=== PATIENT | male | born 1995 | race Caucasian/White ===

== ENCOUNTER 2017-02-08 17:50 | Emergency (ER) | payer BC, OTHER ==
--- NOTE | 2017-02-08 17:56 | EDPHY ---
H & P Time Seen by Provider: 02/08/17 17:56 Constitutional: Initial Vital Signs Temperature (C) 37.3 C 02/08/17 18:00 Heart Rate 91 02/08/17 18:00 Respiratory Rate 17 02/08/17 18:00 Blood Pressure 160/81 H 02/08/17 18:00 O2 Sat (%) 95 02/08/17 18:00 O2 Delivery Mode [Procedural Non-Rebreather Mask 4th] O2 Delivery Mode [Procedural Non-Rebreather Mask 3rd] O2 Delivery Mode [Procedural Non-Rebreather Mask 2nd] O2 Delivery Mode [Procedural Non-Rebreather Mask 1st] O2 Delivery Mode [.Immediate Non-Rebreather Mask Pre-Procedure] O2 Delivery Mode Room Air O2 (L/minute) [Procedural 4th] 15 O2 (L/minute) [Procedural 3rd] 15 O2 (L/minute) [Procedural 2nd] 15 O2 (L/minute) [Procedural 1st] 15 O2 (L/minute) [.Immediate Pre- 15 Procedure] O2 (L/minute) 15 Allergies/Adverse Reactions: sulfamethoxazole [From Bactrim] Allergy (Verified 02/08/17 18:00) trimethoprim [From Bactrim] Allergy (Verified 02/08/17 18:00) Home Medications: Medication Instructions Recorded HYDROcodone/APAP 325 [[place] 1 - 2 each PO Q4-6PRN PRN #20 tab 02/08/17 10/325] Medical Decision Making - Diagnostics Imaging: I viewed and interpreted images myself ED Course/Re-evaluation: CHIEF COMPLAINT: Left elbow pain HISTORY OF PRESENT ILLNESS: 21-year-old male who was skateboarding when he fell on a left outstretched hand and dislocated his left elbow. Has a few other mild abrasions. He has no other complaints would not be here if it was for the left elbow injury. He has dislocated his right elbow in the same fashion in the past. He has required conscious sedation to get it in place and he is requesting that again. He denies any loss of consciousness neck pain or any other significant injuries. REVIEW OF SYSTEMS: A 10 point review of systems was performed and is negative with the exception of the elements mentioned in the history of present illness. PHYSICAL EXAM: HR, BP, O2 Sat, RR. Temp noted General Appearance: Alert, well hydrated, appropriate, and non-toxic appearing. Head: Atraumatic without scalp tenderness or obvious injury Eyes: Pupils equal, round, reactive to light and accommodation, EOMI, no trauma , no injection. Ears: Clear bilaterally, no perforation, normal landmarks Nose: Atraumatic, no rhinorrhea, clear. Throat: There is no erythema or exudates, no lesions, normal tonsils, mucus membranes moist. Neck: Supple, 2+ carotid upstroke, nontender, no lymphadenopathy. Respiratory: No retractions, no distress, no wheezes, and no accessory muscle use. Lungs are clear to auscultation bilaterally. Cardiovascular: Regular rate and rhythm, no murmurs, rubs, or gallops. Bilateral carotid, radial, dorsalis pedis, and posterior tibial pulses intact. Good capillary refill all extremities. Gastrointestinal: Abdomen is soft, nontender, non-distended, no masses, no rebound, no guarding, no peritoneal signs. Musculoskeletal: Left elbow is obviously dislocated. He is neurovascularly intact distal to the injury. There is no evidence of compartment syndrome, tenting of the skin, or significant fracture clinically. Normal active ROM of all extremities, atraumatic. Neurological: Alert, appropriate, and interactive. The patient has normal DTRs and non-focal cranial nerves, motor, sensory, and cerebellar exam. Skin: No rashes, good turgor, no nodules on palpation. Past medical history: Prior elbow dislocation, otherwise unremarkable Past surgical history: Noncontributory Family history: Noncontributory Social history: Single, does not abuse tobacco drugs or alcohol, employed DIAGNOSTICS/PROCEDURES/CRITICAL CARE TIME: Procedure: Conscious sedation. Indication: Elbow dislocation The patient is an appropriate candidate to tolerate procedural sedation. The patient's vitals signs and mental status are appropriate. The risks, benefits and alternatives of the sedation were discussed with the patient. The patient is ASA classification 1. The patient's Mallampati airway score was 1 and the patient did meet the 3-3-2 airway measurements. A time out was completed. The patient was sedated with 130mg IV Propofol. The patient was monitored with continuous pulse oximetry, court recording monitor and end tidal CO2. There were no complications and no significant hypoxemia. I performed both the sedation and the procedure. The total time I spent at the bedside during the procedural sedation was 25 minutes. The patient was examined after the procedural sedation and has returned to their pre-sedation baseline with normal vital signs and a normal examination. Procedure: Reduction of Dislocation of Elbow Time-out completed immediately before the procedure. IV established. O2 administered. Placed on pulse oximeter and ETCO2 monitor. Neurovascular exam intact pre-procedure. Given 130mg IV Propofol for pain and sedation. The left elbow dislocation was reduced using traction. Reassessed post-procedure. Neurovascular status intact-normal Motor and sensory exam. Exam indicated reduction. Splint applied by tech. After x-ray, the elbow appeared dislocated again. The procedure was performed by myself, Dr. Bella Procedure: Conscious sedation. Indication: Elbow dislocation The patient is an appropriate candidate to tolerate procedural sedation. The patient's vitals signs and mental status are appropriate. The risks, benefits and alternatives of the sedation were discussed with the patient. The patient is ASA classification 1. The patient's Mallampati airway score was 1 and the patient did meet the 3-3-2 airway measurements. A time out was completed. The patient was sedated with 70mg IV Propofol. The patient was monitored with continuous pulse oximetry, court recording monitor and end tidal CO2. There were no complications and no significant hypoxemia. I performed both the sedation and the procedure. The total time I spent at the bedside during the procedural sedation was 25 minutes. The patient was examined after the procedural sedation and has returned to their pre-sedation baseline with normal vital signs and a normal examination. Procedure: Reduction of Dislocation of Elbow Time-out completed immediately before the procedure. IV established. O2 administered. Placed on pulse oximeter and ETCO2 monitor. Neurovascular exam intact pre-procedure. Given 130mg IV Propofol for pain and sedation. The left elbow dislocation was reduced using traction. Reassessed post-procedure. Neurovascular status intact-normal Motor and sensory exam. Exam indicated reduction. Splint applied by myself and the tech. After x-ray, the elbow appeared properly located. The procedure was performed by myselfDr. Bella. Post-reduction x-ray confirms radial head fracture. DIFFERENTIAL DIAGNOSIS: The differential diagnosis for the patient's trauma included but was not limited to elbow dislocation, intracranial injury, long bone and pelvic bone fractures, spinal injury, intra-abdominal injury, and intra -thoracic injury. MEDICAL DECISION MAKING: This patient has a few abrasions but is here because of his dislocated left elbow. He is requesting conscious sedation since he has dislocated his right elbow before they were not able to get it in place without sedation. Has a few very minor bruises and abrasions but did not lose consciousness has no head pain no neck pain did not even hit his head. He is not complaining of anything else. Elbow reduced successfully during conscious sedation. CMS remains intact. Patient will be discharged with standard elbow dislocation care and follow up instructions. He is comfortable with this plan. Departure - Departure Disposition: Home, Routine, Self-Care Clinical Impression: Dislocation of left elbow Qualifiers: Encounter type: initial encounter Qualified Code(s): S53.105A - Unspecified dislocation of left ulnohumeral joint, initial encounter Radial head fracture, closed Qualifiers: Encounter type: initial encounter Fracture alignment: nondisplaced Laterality: left Qualified Code(s): S52.125A - Nondisplaced fracture of head of left radius , initial encounter for closed fracture Condition: Good Instructions: Elbow Dislocation (ED) Additional Instructions: 1. Take 600mg ibuprofen every 6-8 hours as needed for pain and inflammation for the next few days. 2. Use [place] as prescribed as needed for severe pain. 3. Follow up with orthopedist within in next week without fail. 4. Return to the ED for severe pain, weakness, numbness or other worsening of condition. Referrals: Patient,NotPresent [Unknown] - As per Instructions Ford Scanlon MD [Medical Doctor] - As per Instructions Prescriptions: HYDROcodone/APAP 10/325 [[place] 10/325] 1 - 2 each PO Q4-6PRN PRN #20 tab PRN Reason: Pain, Moderate Report Scribed for: Mathieu Bella Report Scribed by: Conchita Cooney Date of Report: 02/08/17 Time of Report: 18:43
[2017-02-08] MEDS ORDERED: PROPOFOL 200 MG/20 ML VIAL ONE ×2 (18:02→18:37)
[2017-02-08] MEDS ORDERED: HYDROCODONE/APAP 5/325 TAB PO ONE (19:05)
[2017-02-08] MEDS ORDERED: HYDROCOD/APAP 5/325 PREPACK#6 BTL TAKEHOME ONE (19:05)
[2017-02-08 19:45] VITALS: BP 149/69; PULSE 77; RESP 16; TEMP 97.9; O2SAT 93
== END 2017-02-08 19:42 | disposition home or self-care (01) ==
LOC: EDUNIT#
PROC: 0RSMXZZ Reposition Left Elbow Joint, External Approach (ICD-10-PCS; principal; 2017-02-08)
DX: S53.105A Unspecified dislocation of left ulnohumeral joint, initial encounter (principal); S52.125A Nondisplaced fracture of head of left radius, initial encounter for closed fracture; V00.131A Fall from skateboard, initial encounter; Y99.8 Other external cause status; Y93.51 Activity, roller skating (inline) and skateboarding
CPT/HCPCS: J2704

== ENCOUNTER 2017-12-08 16:43 | Emergency (ER) | payer BC, MEDICAID, OTHER ==
--- NOTE | 2017-12-08 17:12 | EDPHY ---
H & P Time Seen by Provider: 12/08/17 17:01 HPI/ROS: CHIEF COMPLAINT: Fall, right elbow pain HISTORY OF PRESENT ILLNESS: Patient presents with complaints of fall and right elbow pain. He was at work this afternoon, and works as a parts delivery driver. He says he tripped on a step while delivering something. He landed on his right arm in outward stretched fashion. He felt a sudden onset of pain and a pop in the right elbow. He felt as though he may have dislocated and reduced it prior to arrival. He now has moderate pain in the right elbow rest. Severe if he moves it. No numbness, tingling or weakness. No radiating pain. No pain in the right shoulder wrist. No head injury or head strike. No other associated complaints or modifying factors. Right-hand dominant ESTABLISHED ORTHOPEDIST: None REVIEW OF SYSTEMS: Ten systems reviewed and are negative unless otherwise noted in the HPI PAST MEDICAL HISTORY: Orthopedic injuries PAST SURGICAL HISTORY: Left elbow surgery SOCIAL HISTORY: Denies tobacco use. Occasional alcohol marijuana use. Lives here independently. Works for [employer] HISTORY: Noncontributory EXAMINATION General Appearance: Alert, no distress HEENT: Normocephalic and atraumatic. Pupils equal round reactive. EOM symmetric. No nystagmus or dysconjugate gaze Cardiovascular: Radial pulses are 2+ symmetrically. There is brisk cap refill in all 5 fingers of the right hand. Neurological: A&O, radial, ulnar and median distributions are intact in the right upper extremity 2 point sensation intact in the fingers of the right hand. interossei strength symmetric Skin: Warm and dry, no rash. No petechiae. No purpura. No puncture laceration Extremities: There is tenderness over the right elbow primarily over the radial head. There is no tenderness of the olecranon process. No tenderness of the right wrist or snuffbox. Range of motion of the right upper extremity is symmetric but there is pain with extension of the right elbow. No crepitus or deformity per Psychiatric: Mood and affect normal DIFFERENTIAL DIAGNOSES: Including but not limited to radial head fracture, sprain, strain, subluxation, dislocation MDM: 5:10 p.m. Reported mechanical fall with right elbow pain after fall on outstretched hand. No bony tenderness of the shoulder, wrist or hand on the right upper extremity. He does have tenderness on the right elbow particular with extension of the elbow. Although there is no obvious bony abnormality on the plain film as read by me, I will place him in a posterior splint and sling to protect for occult radial head injury. He is neurovascular intact distally. This injury did occur at work, thus he knows he must contact his worker's sales compensation analyst. We discussed ice and elevation. We discussed ED precautions. We discuss anti-inflammatories and short course of pain medication. Discharged home stable condition. SUPERVISION: This patient was independently evaluated without direct involvement of or examination by the attending physician. ED Precautions: Worsening pain. Erythema, edema, cyanosis, pallor, paresthesia or anesthesia. Smoking Status: Current some day smoker Constitutional: Initial Vital Signs Temperature (C) 98.6 F 12/08/17 16:46 Heart Rate 68 12/08/17 16:46 Respiratory Rate 16 12/08/17 16:46 Blood Pressure 147/87 H 12/08/17 16:46 O2 Sat (%) 96 12/08/17 16:46 O2 Delivery Mode Room Air Allergies/Adverse Reactions: sulfamethoxazole [From Bactrim] Allergy (Verified 02/08/17 18:00) trimethoprim [From Bactrim] Allergy (Verified 02/08/17 18:00) Home Medications: Medication Instructions Recorded traMADol [Ultram 50 mg (*)] 50 mg PO Q4 PRN #7 tab 12/08/17 MDM/Departure - MDM Imaging Results: Imaging Impressions Elbow X-Ray 12/08/17 16:48 Impression: Negative for fracture or dislocation. - Depart Disposition: Home, Routine, Self-Care Clinical Impression: Pain in right elbow Fall Qualifiers: Encounter type: initial encounter Qualified Code(s): W19.XXXA - Unspecified fall, initial encounter Sprain of elbow, right Qualifiers: Encounter type: initial encounter Qualified Code(s): S53.401A - Unspecified sprain of right elbow, initial encounter Condition: Good Instructions: Elbow Sprain (ED) Additional Instructions: 1. Splint and sling as provided until seen by [facility] compensation [facility] orthopedist for definitive care 2. Ice and elevate often 3. Ibuprofen 400-600 mg every 6-8 hours as needed for pain 4. Tramadol as prescribed as needed for pain 5. Contact her worker's compensation Clinic for further care and orthopedic follow-up if needed 6. ED precautions as discussed Stand Alone Forms: Work Comp Follow Up Prescriptions: traMADol [Ultram 50 mg (*)] 50 mg PO Q4 PRN #7 tab PRN Reason: Pain, Mild Referrals: Vladimir Medina MD [Medical Doctor] - As per Instructions
[2017-12-08 17:37] VITALS: BP 139/81
== END 2017-12-08 17:40 | disposition home or self-care (01) ==
DX: S53.401A Unspecified sprain of right elbow, initial encounter (principal); F17.200 Nicotine dependence, unspecified, uncomplicated; W18.39XA Other fall on same level, initial encounter; Y92.69 Other specified industrial and construction area as the place of occurrence of the external cause; Y99.0 Civilian activity done for income or pay; Y93.89 Activity, other specified
CPT/HCPCS: A4565

== ENCOUNTER 2017-12-09 13:51 | Emergency (ER) | payer MEDICAID, OTHER ==
[2017-12-09 14:21] VITALS: BP 163/86
--- NOTE | 2017-12-09 15:01 | EDPHY ---
H & P Stated Complaint: R elbow pain Time Seen by Provider: 12/09/17 14:49 HPI/ROS: CHIEF COMPLAINT: Right elbow pain HISTORY OF PRESENT ILLNESS: 22-year-old male seen the ER yesterday after he injured his right elbow while he was at work. Describes tripping and falling onto his right elbow. He was seen the ER, had negative radiographs, placed in a posterior Ortho Glass splint, given prescription for tramadol. He returns to the ER noting that he has had intractable pain. He notes prior history of chronic right elbow pain secondary to multiple injuries. He denies paresthesia , sensory or motor deficit, discoloration, proximal distal pain or injury. PHYSICAL EXAM (Prior to examination, patient consented to physical exam, hands were washed and my usual and customary physical exam procedures followed) 1) GENERAL: Well-developed, well-nourished, alert and oriented. Appears to be in no acute distress. 2) HEAD: Normocephalic 3) HEENT: sclera anicteric 4) LUNGS: Breathing comfortably. 5) SKIN: Intact no discoloration 6) MUSCULOSKELETAL: Right upper extremity posterior Ortho Glass splint in place , taken down by myself. Patient feels significant relief upon taking office splint. Underlying tissue appears well. He has soft compartments. He is tender to palpation of the radial head. 7) NEUROLOGIC: Radial ulnar median nerve function intact distally. Brisk pulses distally. - Personal History Current Tetanus/Diphtheria Vaccine: Yes Current Tetanus Diphtheria and Acellular Pertussis (TDAP): Yes - Medical/Surgical History Hx Asthma: No Hx Chronic Respiratory Disease: No Hx Diabetes: No Hx Cardiac Disease: No Hx Renal Disease: No Hx Cirrhosis: No Hx Alcoholism: No Hx HIV/AIDS: No Hx Splenectomy or Spleen Trauma: No Other PMH: L elbow surgery - Social History Smoking Status: Current some day smoker Constitutional: Initial Vital Signs Temperature (C) 36.6 C 12/09/17 14:10 Heart Rate 70 12/09/17 14:10 Respiratory Rate 16 12/09/17 14:10 Blood Pressure 163/86 H 12/09/17 14:10 O2 Sat (%) 97 12/09/17 14:10 O2 Delivery Mode Room Air Allergies/Adverse Reactions: sulfamethoxazole [From Bactrim] Allergy (Verified 12/09/17 14:10) trimethoprim [From Bactrim] Allergy (Verified 12/09/17 14:10) Home Medications: Medication Instructions Recorded traMADol [Ultram 50 mg (*)] 50 mg PO Q4 PRN #7 tab 12/08/17 Hydrocodone/APAP 5/325 [[place] 1 tab PO Q6 PRN #15 tab 12/09/17 5/325 (RX)] Medical Decision Making ED Course/Re-evaluation: I reviewed the patient's medical records. He feels significant relief after taking off the Ortho Glass splint. This will be removed and he is just placed in a sling at this time. Radial head occult fracture not ruled out. No evidence of compartment syndrome at this time. He is neurovascularly intact with soft compartments. Plan will be discharged with close follow-up with orthopedics and change of analgesia. He feels comfortable being discharged. Usual and customary orthopedic precautions and instructions provided. I saw this patient independently based on established practice protocols. Care of patient under supervision of secondary supervising physician Dr Alberto Stokes Departure - Departure Disposition: Home, Routine, Self-Care Clinical Impression: Right elbow pain Condition: Good Instructions: Elbow Sprain (ED) Additional Instructions: Return to the ER immediately if you experience discoloration, have worsening pain, numbness, tingling, or any other symptoms that concern you. If you received x-rays in the emergency department today, be advised, that ligamentous , tendon, muscular, and other non-bony injury cannot be fully ruled out. Try to keep your affected extremity elevated above the level of your chest, and keep cold packs on the affected area, for the next 48 hours. Referrals: Iker Benavidez MD [Medical Doctor] - 2-3 days, call for appt. Stand Alone Forms: Work Comp Follow Up Prescriptions: Hydrocodone/APAP 5/325 [[place] 5/325 (RX)] 1 tab PO Q6 PRN #15 tab PRN Reason: Pain, Severe
== END 2017-12-09 15:11 | disposition home or self-care (01) ==
DX: S59.901A Unspecified injury of right elbow, initial encounter (principal); F17.200 Nicotine dependence, unspecified, uncomplicated; W01.0XXA Fall on same level from slipping, tripping and stumbling without subsequent striking against object, initial encounter; Y92.69 Other specified industrial and construction area as the place of occurrence of the external cause; Y99.0 Civilian activity done for income or pay; Y93.89 Activity, other specified

== ENCOUNTER 2018-02-09 15:16 | Emergency (ER) | payer MEDICAID, OTHER ==
[2018-02-09] MEDS ORDERED: NS 500 ML IV ONE (16:24)
[2018-02-09] MEDS ORDERED: LIDOCAINE 2% VISCOUS 15 ML UDCUP PO ONE (16:24)
[2018-02-09] MEDS ORDERED: MAG HYDROX/AL HYDROX/SIMETH 30 ML UDCUP PO ONE (16:24)
[2018-02-09] MEDS ORDERED: HYOSCYAMINE SULFATE 0.125 MG TAB PO ONE (16:24)
[2018-02-09] MEDS ORDERED: ASPIRIN 81 MG CHEWABLE TAB PO ONE (16:24)
[2018-02-09] MEDS ORDERED: LORazepam 2 MG/ML INJ IVP ONE (16:25)
--- NOTE | 2018-02-09 16:28 | EDPHY ---
H & P Time Seen by Provider: 02/09/18 16:18 HPI/ROS: CHIEF COMPLAINT: "Possible alcohol withdrawal", epigastric pain/chest pain HISTORY OF PRESENT ILLNESS: Patient is a 22-year-old male who reports drinking alcohol regularly and heavily. His last drink was last evening. He feels as though he may be having alcohol withdrawal. Feeling anxious and jittery. Patient also complains of epigastric and chest pain. This is mild. There is no radiation of his pain. No shortness of breath. No fevers or chills. REVIEW OF SYSTEMS: My complete review of systems is negative except as mentioned in the HPI. Past Medical/Surgical History: Includes alcohol abuse Past surgical history: Left elbow surgery Social history: The patient drinks alcohol regularly. Smoking Status: Former smoker Physical Exam: 36.7, 157/78, 116, 18, 100% on room air GENERAL: Well-appearing, in no acute distress, alert. HEENT: Eyes normal to inspection, normal pharynx, no signs of dehydration. NECK: No thyromegaly, no lymphadenopathy, supple. RESPIRATORY: Clear to auscultation bilaterally, no rales, rhonchi or wheezing. CVS: Tachycardia with regular rhythm, no rubs, murmurs, or gallops. ABDOMEN: Soft, nontender, nondistended, no organomegaly. Benign BACK: Normal to inspection, no CVA tenderness. SKIN: Normal color, no rash, warm, dry. No pallor. EXTREMITIES: No pedal edema, no calf tenderness, no Homans sign or cords, no joint swelling. NEURO/PSYCH: Slight tremor. Alert and oriented x3, normal mood and affect, normal motor sensory exam. No obvious cranial nerve deficit. Constitutional: Initial Vital Signs Temperature (C) 36.7 C 02/09/18 15:24 Heart Rate 116 H 02/09/18 15:24 Respiratory Rate 18 02/09/18 15:24 Blood Pressure 157/78 H 02/09/18 15:24 O2 Sat (%) 100 02/09/18 15:24 O2 Delivery Mode Room Air Allergies/Adverse Reactions: sulfamethoxazole [From Bactrim] Allergy (Verified 02/09/18 15:23) trimethoprim [From Bactrim] Allergy (Verified 02/09/18 15:23) Home Medications: Medication Instructions Recorded NK [No Known Home Meds] 02/09/18 Medical Decision Making - Diagnostics Imaging Results: Imaging Impressions Chest X-Ray 02/09/18 16:24 Impression: 1. Clear lungs. 2. Right thyroid nodule versus neck mass shifting trachea to the left. Findings discussed with Emergency Department physician, Shanthi Francois M.D. , on February 09, 2018 at 1721. ED Course/Re-evaluation: In the emergency department I discussed possible etiologies with the patient. I answered all his questions. IV was placed. Patient given normal saline 1000 mL IV for hydration. He was given aspirin for his reported chest pain. Patient was given a GI cocktail for his epigastric discomfort history of drinking. Patient was given Ativan 1 mg IV for alcohol withdrawal symptoms. Laboratory studies, and EKG were ordered. EKG shows normal sinus rhythm, normal rate, normal axis, normal intervals. There are no ST or T-wave abnormalities. EKG is normal as interpreted by me. CBC chemistry normal. Troponin is negative. Chest x-ray: Please refer the dictated report. On recheck the patient was feeling better. His abdomen was soft, nontender nondistended. Clear breath sounds bilaterally. The patient was given warnings prior to leaving. I recommended he go to the arc. He did not want to go at this time. He will return with worsening symptoms. I discussed the case with the radiologist. He recommended an outpatient ultrasound of the patient's neck. He did not feel this needs to be in emergency department. Patient had already left the emergency department. I attempted to call the patient at his phone number provided. The mailbox was full. Differential Diagnosis: My differential includes but is not limited to alcohol withdrawal, anxiety, esophagitis, gastritis, GERD, Karly-Hernandez tear, esophageal perforation, ACS, acute [place], pulmonary embolus - Data Points Laboratory Results: Laboratory Results 02/09/18 16:45 02/09/18 16:45 02/09/18 02/09/18 02/09/18 16:48 16:45 16:45 WBC 8.63 10^3/uL 10^3/uL (3.80-9.50) RBC 5.48 10^6/uL 10^6/uL (4.40-6.38) Hgb 16.6 g/dL g/dL (13.7-17.5) Hct 46.8 % % (40.0-51.0) MCV 85.4 fL fL (81.5-99.8) MCH 30.3 pg pg (27.9-34.1) MCHC 35.5 g/dL g/dL (32.4-36.7) RDW 13.2 % % (11.5-15.2) Plt Count 245 10^3/uL 10^3/uL (150-400) MPV 10.3 fL fL (8.7-11.7) Neut % (Auto) 62.8 % % (39.3-74.2) Lymph % (Auto) 26.8 % % (15.0-45.0) [place] % (Auto) 9.0 % % (4.5-13.0) Eos % (Auto) 0.2 % L % (0.6-7.6) Baso % (Auto) 0.5 % % (0.3-1.7) Nucleat RBC Rel Count 0.0 % % (0.0-0.2) Absolute Neuts (auto) 5.42 10^3/uL 10^3/uL (1.70-6.50) Absolute Lymphs (auto) 2.31 10^3/uL 10^3/uL (1.00-3.00) Absolute Monos (auto) 0.78 10^3/uL 10^3/uL (0.30-0.80) Absolute Eos (auto) 0.02 10^3/uL L 10^3/uL (0.03-0.40) Absolute Basos (auto) 0.04 10^3/uL 10^3/uL (0.02-0.10) Absolute Nucleated RBC 0.00 10^3/uL 10^3/uL (0-0.01) Immature Gran % 0.7 % % (0.0-1.1) Immature Gran # 0.06 10^3/uL 10^3/uL (0.00-0.10) Sodium 139 mEq/L mEq/L (135-145) Potassium 4.2 mEq/L mEq/L (3.3-5.0) Chloride 101 mEq/L mEq/L (97-110) Carbon Dioxide 27 mEq/l mEq/l (22-31) Anion Gap 11 mEq/L mEq/L (8-16) BUN 13 mg/dL mg/dL (7-23) Creatinine 0.9 mg/dL mg/dL (0.7-1.3) Estimated GFR > 60 Glucose 100 mg/dL mg/dL (70-100) Calcium 10.4 mg/dL mg/dL (8.5-10.4) Total Bilirubin 0.4 mg/dL mg/dL (0.1-1.4) Conjugated Bilirubin 0.2 mg/dL mg/dL (0.0-0.5) Unconjugated Bilirubin 0.2 mg/dL mg/dL (0.0-1.1) AST 43 IU/L IU/L (17-59) ALT 50 IU/L IU/L (21-72) Alkaline Phosphatase 86 IU/L IU/L (38-126) POC Troponin I 0.00 ng/mL ng/mL (0.00-0.08) Total Protein 8.3 g/dL H g/dL (6.3-8.2) Albumin 4.8 g/dL g/dL (3.5-5.0) Lipase 39 IU/L IU/L (23-300) Medications Given: Discontinued Medications Al Hydroxide/Mg Hydroxide (Maalox Susp) 30 ml PO ONCE ONE Stop: 02/09/18 16:25 Last Admin: 02/09/18 16:55 Dose: 30 ml Aspirin (Aspirin) 324 mg PO EDNOW ONE Stop: 02/09/18 16:25 Last Admin: 02/09/18 16:53 Dose: 324 mg Hyoscyamine Sulfate (Levsin, Hyomax-Sl) 0.25 mg PO ONCE ONE Stop: 02/09/18 16:25 Last Admin: 02/09/18 16:53 Dose: 0.25 mg Sodium Chloride (Ns) 500 mls @ 1,000 mls/hr IV EDNOW ONE PRN Reason: Protocol Stop: 02/09/18 16:53 Last Admin: 02/09/18 16:56 Dose: 500 mls Lidocaine (Lidocaine 2% Viscous) 15 ml PO ONCE ONE Stop: 02/09/18 16:25 Last Admin: 02/09/18 16:55 Dose: 15 ml Lorazepam (Ativan Injection) 1 mg IVP EDNOW ONE Stop: 02/09/18 16:26 Last Admin: 02/09/18 16:51 Dose: 1 mg Point of Care Test Results: Chemistry 02/09/18 16:48 POC Troponin I 0.00 ng/mL ng/mL (0.00-0.08) Departure - Departure Disposition: Home, Routine, Self-Care Clinical Impression: Anxiety Alcohol withdrawal Qualifiers: Complication of substance-induced condition: uncomplicated Qualified Code(s): F10.230 - Alcohol dependence with withdrawal, uncomplicated Chest pain Qualifiers: Chest pain type: unspecified Qualified Code(s): R07.9 - Chest pain, unspecified Condition: Good Instructions: Chest Pain (ED), Alcohol Withdrawal (ED) Additional Instructions: Return with increasing abdominal pain, shortness of breath, fever, repeated vomiting or any other concerns. Referrals: Tiana Lagos, [Doctor of Osteopathy] - 3-4 days, if not improved
[2018-02-09 17:05] LABS: PLATELET COUNT 245 10^3/uL (150-400)
--- NOTE | 2018-02-09 17:07 | CPEKG ---
Heart Rate: 66 RR Interval: 909 P-R Interval: 120 QRSD Interval: 94 QT Interval: 408 QTC Interval: 428 P [place]: 19 QRS [place]: 65 T Wave [place]: 31 EKG Severity - NORMAL ECG - EKG Impression: SINUS RHYTHM Electronically Signed By: Jeet Parks 09-Feb-2018 21:36:00
[2018-02-09 18:18] VITALS: BP 149/89
== END 2018-02-09 18:28 | disposition home or self-care (01) ==
DX: F10.230 Alcohol dependence with withdrawal, uncomplicated (principal); F41.9 Anxiety disorder, unspecified; R07.9 Chest pain, unspecified; E86.9 Volume depletion, unspecified; Z87.891 Personal history of nicotine dependence
CPT/HCPCS: 84484-PO; 96374; J2060

== ENCOUNTER 2018-12-01 00:14 | Observation (INO) | payer MEDICAID, OTHER ==
[2018-12-01] MEDS ORDERED: IOPAMIDOL (ISOVUE-300) 100 ML BTL ONE (01:33)
[2018-12-01 03:00] LABS: PLATELET COUNT 260 10^3/uL (150-400)
--- NOTE | 2018-12-01 03:01 | EDPHY ---
H & P Stated Complaint: L NECK SWELLING - Personal History Current Tetanus Diphtheria and Acellular Pertussis (TDAP): Unsure - Medical/Surgical History Hx Asthma: No Hx Chronic Respiratory Disease: No Hx Diabetes: No Hx Cardiac Disease: No Hx Renal Disease: No Hx Cirrhosis: No Hx Alcoholism: Yes Hx HIV/AIDS: No Hx Splenectomy or Spleen Trauma: No Other PMH: L elbow surgery, KNEE SX - Social History Smoking Status: Former smoker Time Seen by Provider: 12/01/18 00:25 HPI/ROS: Chief complaint: Left-sided neck swelling History of present illness: This is a 23-year-old male who presents to the emergency department for left-sided neck swelling. Reports he has noted the swelling over the last 3-4 days. The swelling has progressively worsened. He reports it is uncomfortable. He denies any specific precipitating factors. He denies any alleviating factors. He denies other associated signs or symptoms including no fevers, no cold symptoms including sore throat or cough, no difficulty talking, swallowing, opening closing his mouth or breathing. He has never had similar. Review of systems: A 10 point review of systems was obtained and other than described above was negative. ([place]) - Physical Exam Exam: General Appearance: Alert, no distress. Eyes: Pupils equal and round no pallor or injection. ENT, Mouth: Mucous membranes moist. Tympanic membranes, external auditory canals, external ears and surrounding soft tissue including over the mastoids are unremarkable. Nasopharynx is not injected. There is no rhinorrhea. Oropharynx is not injected. There is no edema. There is no exudate. There is no asymmetry. The uvula is midline. No elevation of the tongue. There is no hoarseness, no drooling, no trismus, no stridor. Respiratory: There are no retractions, lungs are clear to auscultation. Cardiovascular: Regular rate and rhythm. Neurological: Alert and oriented x4. Strength and sensation intact and symmetrical. Skin: Warm and dry, no rashes. Musculoskeletal: Patient has swelling along the left side of his neck. There area is mildly tender. He has decreased range of motion. Extremities are symmetrical, full range of motion. Psychiatric: Patient is oriented X 3, there is no agitation. (Ben Hi) Constitutional: Initial Vital Signs Temperature (C) 36.8 C 12/01/18 00:17 Heart Rate 90 12/01/18 00:17 Respiratory Rate 16 12/01/18 00:17 Blood Pressure 119/66 12/01/18 00:17 O2 Sat (%) 95 12/01/18 00:17 O2 Delivery Mode Room Air Allergies/Adverse Reactions: sulfamethoxazole [From Bactrim] Allergy (Verified 02/09/18 15:23) trimethoprim [From Bactrim] Allergy (Verified 02/09/18 15:23) Home Medications: Medication Instructions Recorded NK [No Known Home Meds] 02/09/18 Medical Decision Making - Diagnostics Imaging: Discussed imaging studies w/ call box wirer Radiologist ED Course/Re-evaluation: Patient is seen under the supervision of my secondary supervising physician Dr. Valentin Peralta. Patient presents for left-sided neck pain. CT scan of the reveals 2 large thyroid masses concerning for malignancy. Baseline blood studies are obtained. Patient will be admitted to Dr. Rodriguez for further care. ENT is consulted, Dr. Jeremiah Nieves who will see the patient in the morning.. The plan has been discussed with the patient who voiced understanding and agreement with it. (Ben Hi) Differential Diagnosis: Included but not limited to cell a very gland infection, abscess (Ben Hi) - Data Points Laboratory Results: Laboratory Results 12/01/18 00:38 12/01/18 00:38 Medications Given: Discontinued Medications Sodium Chloride (Ns) 1,000 mls @ 0 mls/hr IV EDNOW ONE; Wide Open PRN Reason: Protocol Stop: 12/01/18 03:20 Last Admin: 12/01/18 03:22 Dose: 1,000 mls Point of Care Test Results: Chemistry 12/01/18 00:43 POC Sodium 141 mEq/L mEq/L (135-145) POC Potassium 3.7 mEq/L mEq/L (3.3-5.0) POC Chloride 103 mEq/L mEq/L (97-110) POC Total CO2 21 mEq/L L mEq/L (22-31) POC BUN 11 mg/dL mg/dL (7-23) POC Creatinine 0.7 mg/dL mg/dL (0.7-1.3) POC Glucose 102 mg/dL H mg/dL (70-100) ISTAT H&H 12/01/18 00:43 POC Hgb 16.7 gm/dL gm/dL (13.7-17.5) POC Hct 49 % % (40-51) Departure - Departure Disposition: [facility] Inpatient Acute Clinical Impression: Tumor, thyroid Condition: Fair
[2018-12-01] MEDS ORDERED: ACETAMINOPHEN 325 MG TAB PO PRN (03:09)
[2018-12-01] MEDS ORDERED: ONDANSETRON 4 MG/2 ML VIAL IVP PRN (03:09)
[2018-12-01] MEDS ORDERED: ONDANSETRON DISINTEGRATING 4 MG TAB PO PRN (03:09)
[2018-12-01] MEDS ORDERED: NS 1,000 ML IV ONE (03:19)
--- NOTE | 2018-12-01 03:52 | PDGENHP ---
History and Physical - Chief Complaint Neck swelling - History of Present Illness 23 yo M presents with neck swelling. The patient tells me he noted swelling in his neck around 3 days ago. Over the last 2 days this has worsened to where he now has some mild discomfort swallowing. He denies any difficulty breathing. On exam he has visible swollen anterior neck. A CT scan demonstrates 2 large thyroid tumors concerning for malignancy. Of note, the patient tells me his brother recently underwent surgery for thyroid malignancy. Also, he tells me his mom and grandmother also had thyroid issues. He denies any prior medical problems and takes no medications regularly. Case discussed with ED physician Dr. Gudino; records reviewed and summarized above. History Information - Allergies/Home Medication List Allergies/Adverse Reactions: sulfamethoxazole [From Bactrim] Allergy (Verified 02/09/18 15:23) trimethoprim [From Bactrim] Allergy (Verified 02/09/18 15:23) Home Medications: NK [No Known Home Meds] 02/09/18 [Last Taken Unknown] I have personally reviewed and updated: family history, medical history - Past Medical History no pertinent PMH - Surgical History Additional surgical history: Knee and elbow surgery - Family History Positive for: cancer (Brother had thyroid cancer) - Social History Smoking Status: Former smoker Review of Systems Review of Systems: ROS: 10pt was reviewed & negative except for what was stated in HPI & below Physical Exam Physical Exam: Temp Pulse Resp BP Pulse Ox 36.8 C 73 17 137/73 H 97 12/01/18 03:01 12/01/18 03:01 12/01/18 03:01 12/01/18 03:01 12/01/18 03:01 Constitutional: appears nourished, uncomfortable Eyes: PERRL, EOMI Ears, Nose, Mouth, Throat: moist mucous membranes, other (Anterior neck swelling ) Cardiovascular: regular rate and rhythym, no murmur, rub, or gallop Respiratory: no respiratory distress, clear to auscultation Gastrointestinal: normoactive bowel sounds, soft, non-tender abdomen Skin: warm, normal color Musculoskeletal: full muscle strength, no muscle tenderness Neurologic: AAOx3, CN II-XII Intact Psychiatric: interacting appropriately, not anxious Lab Data & Imaging Review 12/01/18 00:38 12/01/18 00:38 WBC 9.11 10^3/uL (3.80-9.50) 12/01/18 00:38 RBC 5.50 10^6/uL (4.40-6.38) 12/01/18 00:38 Hgb 16.4 g/dL (13.7-17.5) 12/01/18 00:38 POC Hgb 16.7 gm/dL (13.7-17.5) 12/01/18 00:43 Hct 48.1 % (40.0-51.0) 12/01/18 00:38 POC Hct 49 % (40-51) 12/01/18 00:43 MCV 87.5 fL (81.5-99.8) 12/01/18 00:38 MCH 29.8 pg (27.9-34.1) 12/01/18 00:38 MCHC 34.1 g/dL (32.4-36.7) 12/01/18 00:38 RDW 13.1 % (11.5-15.2) 12/01/18 00:38 Plt Count 260 10^3/uL (150-400) 12/01/18 00:38 MPV 10.5 fL (8.7-11.7) 12/01/18 00:38 Neut % (Auto) 59.6 % (39.3-74.2) 12/01/18 00:38 Lymph % (Auto) 32.2 % (15.0-45.0) 12/01/18 00:38 [place] % (Auto) 7.4 % (4.5-13.0) 12/01/18 00:38 Eos % (Auto) 0.3 % (0.6-7.6) L 12/01/18 00:38 Baso % (Auto) 0.3 % (0.3-1.7) 12/01/18 00:38 Nucleat RBC Rel Count 0.0 % (0.0-0.2) 12/01/18 00:38 Absolute Neuts (auto) 5.43 10^3/uL (1.70-6.50) 12/01/18 00:38 Absolute Lymphs (auto) 2.93 10^3/uL (1.00-3.00) 12/01/18 00:38 Absolute Monos (auto) 0.67 10^3/uL (0.30-0.80) 12/01/18 00:38 Absolute Eos (auto) 0.03 10^3/uL (0.03-0.40) 12/01/18 00:38 Absolute Basos (auto) 0.03 10^3/uL (0.02-0.10) 12/01/18 00:38 Absolute Nucleated RBC 0.00 10^3/uL (0-0.01) 12/01/18 00:38 Immature Gran % 0.2 % (0.0-1.1) 12/01/18 00:38 Immature Gran # 0.02 10^3/uL (0.00-0.10) 12/01/18 00:38 POC Sodium 141 mEq/L (135-145) 12/01/18 00:43 Sodium 139 mEq/L (135-145) 12/01/18 00:38 POC Potassium 3.7 mEq/L (3.3-5.0) 12/01/18 00:43 Potassium 4.3 mEq/L (3.5-5.2) 12/01/18 00:38 POC Chloride 103 mEq/L (97-110) 12/01/18 00:43 Chloride 104 mEq/L (97-110) 12/01/18 00:38 Carbon Dioxide 19 mEq/l (22-31) L 12/01/18 00:38 POC Total CO2 21 mEq/L (22-31) L 12/01/18 00:43 Anion Gap 16 mEq/L (6-14) H 12/01/18 00:38 POC BUN 11 mg/dL (7-23) 12/01/18 00:43 BUN 12 mg/dL (7-23) 12/01/18 00:38 Creatinine 0.6 mg/dL (0.7-1.3) L 12/01/18 00:38 POC Creatinine 0.7 mg/dL (0.7-1.3) 12/01/18 00:43 Estimated GFR > 60 12/01/18 00:38 Glucose 101 mg/dL (70-100) H 12/01/18 00:38 POC Glucose 102 mg/dL (70-100) H 12/01/18 00:43 Calcium 9.4 mg/dL (8.5-10.4) 12/01/18 00:38 Total Bilirubin 0.5 mg/dL (0.1-1.4) 12/01/18 00:38 Conjugated Bilirubin 0.5 mg/dL (0.0-0.5) 12/01/18 00:38 Unconjugated Bilirubin 0.0 mg/dL (0.0-1.1) 12/01/18 00:38 AST 32 IU/L (17-59) 12/01/18 00:38 ALT 44 IU/L (21-72) 12/01/18 00:38 Alkaline Phosphatase 74 IU/L (38-126) 12/01/18 00:38 Total Protein 7.5 g/dL (6.3-8.2) 12/01/18 00:38 Albumin 4.8 g/dL (3.5-5.0) 12/01/18 00:38 TSH 0.459 uIU/mL (0.465-4.680) L 12/01/18 00:38 Free T4 1.25 ng/dL (0.59-2.19) 12/01/18 00:38 Assessment & Plan Assessment: 23 yo M presents with bilateral thyroid tumors. Plan: 1. Thyroid masses - Bilateral thyroid masses measuring up to 7.1 cm on the left and 5.3 cm on the right, concerning for malignancy. His airway is currently secure. His brother recently had a thyroid cancer removed surgically. - Admit for expedited work-up - ENT consulted in the ED - Will need oncology consultation - Checking TSH, Free T4, Phosphorus - Maintain NPO Diet - NPO Code - Full Ppx - Low risk, ambulate TID Dispo - Admit under observation status
--- NOTE | 2018-12-01 10:15 | HOSPPROG ---
Hospitalist Progress Note Assessment/Plan: 23 yo M presents with bilateral thyroid tumors. He had some difficulty swallowing so came to the emergency room for further care. I reviewed his care with Dr. Nieves. The patient needs an ultrasound biopsy on the left. In addition he needs an FNA biopsy to the right side. This is more concerning for malignancy because it is calcified * Thyroid masses - Bilateral thyroid masses measuring up to 7.1 cm on the left and 5.3 cm on the right, concerning for malignancy. -airway is stable -eating and drinking well -ENT recommended OP f/u and biopsies, but not needed on this admission -TSH is low at 0.459 w a free T4 1.25 -his brother was recently dx w Thyroid ca *plan: main issue is Bruce doesn't have insurance, family lives in [place]. He may make too much money for Medicaid. CM to see. Subjective: Bruce said he feels fine, but is concerned about getting insurance and f/u care. Objective: Vital Signs Temp Pulse Resp BP Pulse Ox 36.9 C 67 16 114/51 L 96 12/01/18 07:12 12/01/18 07:12 12/01/18 07:12 12/01/18 07:12 12/01/18 07:12 11/30/18 12/01/18 12/02/18 05:59 05:59 05:59 Intake Total 1000 Balance 1000 - Physical Exam Constitutional: no apparent distress, appears nourished, not in pain Eyes: PERRL Ears, Nose, Mouth, Throat: hearing normal, other (able to palpate a large mass on the side of his left neck area) Cardiovascular: regular rate and rhythym Respiratory: no respiratory distress Skin: warm Musculoskeletal: full muscle strength Neurologic: AAOx3 Psychiatric: interacting appropriately ICD10 Worksheet Patient Problems: Problems Problem Status Onset Tumor, thyroid Acute
--- NOTE | 2018-12-01 11:47 | ASMTCMCOM ---
CM Note CM Note Notes: D/w [employer] and RN, pt admitted for thyroid mass. He states his brother recently also has been treated for thyroid ca. Met with pt, he has no insurance but may be over income for Medicaid. Pt states he makes about $2000 before taxes per month. Pt lives in his van and works two jobs, CM will sent email to [employer] to follow up with pt tomorrow. DC Plan: Independent Date Signed: 12/01/2018 11:46 AM Electronically Signed By:Alicia Matson RN
--- NOTE | 2018-12-01 14:50 | GCON ---
[f rep st] CONSULTATION DATE OF CONSULTATION: 12/01/2018 REFERRING PHYSICIAN: Umesh Rodriguez MD REASON FOR CONSULTATION: Acute left neck swelling. HISTORY: The patient is a 23-year-old man who noted swelling in the left neck about 3 days ago. It seemed to be worsening over the last 2 days. There was a little bit of mild discomfort at times with swallowing, but he denied any trouble swallowing or trouble breathing. He came to the emergency dep artment for evaluation and earlier this morning, a CT scan showed 2 separate thyroid tumors, left michael e and right side and there was some concern for malignancy. He was admitted for observation. FAMILY HISTORY: The patient's brother and mother both have had thyroid cancer. PAST MEDICAL HISTORY: The patient had elbow surgery and knee surgery. MEDICAL ALLERGIES: Bactrim. MEDICATIONS: None. HABITS: The patient drinks alcohol intermittently and smokes marijuana. SOCIAL HISTORY: The patient lives in a van in [place]. He moved here from [place]. He currently h as 2 separate jobs. PHYSICAL EXAM: Patient is sitting up, awake, alert and oriented, speaking in full sentences clearly. He expressed interest in eating. Ear exam is unremarkable. No signs of any abnormality and eye ex am shows pupils to be equal, reactive to light. Extraocular motions intact. Facial exam shows no sw elling. Nasal exam is clear anteriorly. Oral cavity exam shows healthy dentition and mucosa. Palat e, the tongue and the floor of the mouth are all normal. Neck exam is notable for some fullness in t he left neck, which has minimal tenderness to pressure. LABORATORY STUDIES: The labs were reviewed. IMAGING STUDIES: A CT scan of the neck had been obtained. I examined the images myself. There are 2 separate large thyroid tumors. The one on the left side is mostly cystic and measures 4.2 x 3.4 x 7.1 cm. Have multiple septations within it. Interestingly, there is a fluid fluid level, likely ind icative of acute hemorrhage into the cyst. On the right side, there is a mixed cystic and solid nodu le with some calcifications, size 3.8 x 4.1 x 5.0 cm. This pushes against the trachea and causes mj e displacement to the left, but no significant narrowing at all. No pathological lymph nodes were no taj. IMPRESSION: The patient is a 23-year-old man with several thyroid masses. He presents mostly with a nxiety. He stated feeling much more comfortable when I told him that he did not require any emergent surgery. I think what happened is he bled into a cyst on the left thyroid nodule and that caused th e acute swelling. Given his family history and the findings on the CT scan, this likely represents a malignancy. My recommendations would be an ultrasound-guided fine-needle aspiration biopsy of both lesions with the entrance being on the left side to try to decompress it a bit and take away some of his pressure sensation. He can then be scheduled for thyroid surgery. I discussed this with Maricarmen Briggs. He can come back and see me in the clinic this week. The next most important step is kadi jefferson the ultrasound-guided needle biopsy so that we can get some information about the potential histolo gy. Thank you very much for this consultation. /[id number]/MODL
--- NOTE | 2018-12-02 12:07 | HOSPPROG ---
Hospitalist Progress Note Assessment/Plan: 23 yo M presents with bilateral thyroid tumors. He had some difficulty swallowing so came to the emergency room for further care. I reviewed his care with Dr. Nieves. The patient needs an ultrasound biopsy on the left. In addition he needs an FNA biopsy to the right side. This is more concerning for malignancy because it is calcified * Thyroid masses - Bilateral thyroid masses measuring up to 7.1 cm on the left and 5.3 cm on the right, concerning for malignancy. -airway is stable -eating and drinking well -ENT recommended OP f/u and biopsies -TSH is low at 0.459 w a free T4 1.25 -his brother was recently dx w Thyroid ca -spoke w Dr Denis and she will see today -patient would like a detailed plan on next steps -could due biopsies today and have fluid sent so he could get close f/u *plan: financial helping Bruce establish health care so he can get treatment (ran his hx by oncology who recommended endocrine/ ?[facility]) Subjective: Bruce is concerned about left neck area, but overall feeling well. Objective: Vital Signs Temp Pulse Resp BP Pulse Ox 36.8 C 62 14 118/65 96 12/02/18 08:28 12/02/18 08:28 12/02/18 08:28 12/02/18 08:28 12/02/18 08:28 12/01/18 12/02/18 12/03/18 05:59 05:59 05:59 Intake Total 1000 Balance 1000 - Physical Exam Constitutional: no apparent distress, appears nourished Eyes: PERRL Ears, Nose, Mouth, Throat: hearing normal Respiratory: no respiratory distress Skin: warm, other (large round nodule to the left neck area, mobile) Musculoskeletal: full muscle strength Neurologic: AAOx3 Psychiatric: interacting appropriately ICD10 Worksheet Patient Problems: Problems Problem Status Onset Tumor, thyroid Acute
[2018-12-02 15:20] VITALS: BP 114/73
--- NOTE | 2018-12-02 21:24 | GDS ---
[f rep st] DISCHARGE SUMMARY DISCHARGE DIAGNOSIS: Thyroid masses. CONSULTATION: 1. Dr. Nieves. 2. Dr. Denis. HISTORY: Briefly, the patient is a 23-year-old male who presented with bilateral thyroid tumors. He has had some difficulty swallowing, so he came to the emergency for further care. He was seen and evaluated by Dr. Nieves and Dr. Denis. He had a CT of his neck performed, which showed bilateral thyroid nodules suspicious for malignancy. He has no pathologic enlarged lymph nodes. The recommendation from Dr. Nieves was for the patient to followup in the outpatient setting. His recommendation was to do an ultrasound-guided fine- needle aspiration biopsy of both lesions. He was seen and evaluated by Dr. Denis this evening. He will follow up with Endocrinology and get the biopsies performed. He will then follow up with Dr. Nieves for a likely thyroidectomy. He was discharged this evening with phone numbers for followup care. The patient did not want any procedures during his hospital stay because he is in the process of getting insurance, which he will have available to him in the beginning of December. DISCHARGE CONDITION: Stable. Blood pressure is 114/73, heart rate 53, respiratory rate 14, O2 sats on room air are 95%. DISCHARGE INSTRUCTIONS: 1. He will need a FNA biopsy on the right side and ultrasonic guided biopsy on the left. He will make an appointment with the web support engineer for close follow up, The plan is for him to get further care after he gets insurance. This will be in approximately the next two weeks. After he gets his biopsy he will follow up with Dr. Nieves. 2. If he has any trouble breathing or any difficulty with swallowing, to return to the ER. /[id number]/MODL MTDD
--- NOTE | 2018-12-09 11:01 | GCON ---
[f rep st] CONSULTATION ENDOCRINOLOGY CONSULTATION DICTATION ENDS HERE /[id number]/MODL
== END 2018-12-02 18:31 | disposition home or self-care (01) ==
LOC: F3E 03:52
PROVIDERS: ADMIT Student in an Organized Health Care Education/Training Program; ATTEND Internal Medicine
DX: E04.2 Nontoxic multinodular goiter (principal); R13.10 Dysphagia, unspecified; Z87.891 Personal history of nicotine dependence; Z83.49 Family history of other endocrine, nutritional and metabolic diseases
CPT/HCPCS: 82435-PO; 82565-PO; 82947-PO; 84132-PO; 84295-PO; 84520-PO; 85014-ER; G0378; Q9967

== ENCOUNTER → 2018-12-16 | Outpatient (CLI) | payer MEDICAID | LOC: FIMAGING 12:20 ==

== ENCOUNTER 2018-12-30 14:31 | Emergency (ER) | payer MEDICAID | END 2018-12-30 17:23 | disposition home or self-care (01) ==

== ENCOUNTER → 2019-01-02 | Outpatient (CLI) | payer MEDICAID | LOC: FIMAGING 09:58 ==